=== PATIENT | male | born 1965 | race Caucasian/White ===

== ENCOUNTER → 2016-12-24 | Outpatient (CLI) | payer OTHER ==
[2016-12-24 11:43] LABS: BUN 19 mg/dL (7-18)
[2016-12-24 11:47] LABS: GFR (ESTIMATED) 89 ML/MIN (>60)
[2016-12-25 06:43] LABS: Creatinine, Urine 55.7 mg/dL (Not Estab.); Microalbumin, Urine 4.2 ug/mL (Not Estab.)
[2016-12-26 07:36] LABS: Vitamin D, 25-Hydroxy 32.7 ng/mL (30.0-100.0)
== END ==
LOC: LAB 09:26
PROVIDERS: Family Medicine
DX: E11.9 Type 2 diabetes mellitus without complications (principal); I10 Essential (primary) hypertension; Z86.39 Personal history of other endocrine, nutritional and metabolic disease